=== PATIENT | female | born 1940 | race African-American/Black ===

== ENCOUNTER 2022-09-04 12:55 | Inpatient (IN) | payer MEDICARE, MEDICAID ==
[~2022-09-04] VITALS: Ht 149.9 cm; Wt 41.7 kg
[~2022-09-04 12:55] MED LIST: ALEN70TA79 PO; ASPI-1497 PO; DOCU-138 PO; LISI20TA31 PO; NIFE30TA8 PO; PRAS10TA6 PO; TIOT18CA3 IH; TRIA1CAP35 PO; ZOLP5TAB2 PO
[2022-09-04] MEDS ORDERED: HYDRALAZINE 20MG/ML VIAL IV ONE ×3 (15:00→21:45)
[2022-09-04 15:22] LABS: BASOPHILS % 0.7 % (0.0-2.0); HEMATOCRIT. 34.2 % (36.0-48.0); HEMOGLOBIN. 11.5 g/dL (12.0-16.0); LYMPHOCYTES % 12.6 % (20.0-50.0); MEAN CORPUSCULAR HEMOGLOBIN 29.5 pg (28.0-32.0); MEAN CORPUSCULAR VOLUME 87.5 fL (81.0-99.0); MEAN PLATELET VOLUME 9.8 fl (7.4-10.4); MONOCYTES % 6.5 % (2.0-8.0); NEUTROPHILS % 77.2 % (40.0-76.0); PLATELET 237 x1000/uL (130-400); RED BLOOD CELL COUNT 3.91 mill/uL (4.2-5.4); RED CELL DISTRIBUTION WIDTH 14.8 % (11.6-14.6)
[2022-09-04 15:26] LABS: CHLORIDE 106 mEq/L (98-107)
[2022-09-04 15:34] LABS: ETHANOL BLOOD < 10 mg/dL
[2022-09-04 15:43] LABS: PROTHROMBIN TIME 10.5 sec (9.6-11.0)
[2022-09-04 16:06] LABS: CLARITY URINE CLEAR (CLEAR); COLOR URINE YELLOW (YELLOW); KETONES URINE 1+ (NEGATIVE); LEUKOCYTE ESTERASE URINE TRACE (NEGATIVE); NITRITE URINE NEGATIVE (NEGATIVE); OCCULT BLOOD URINE NEGATIVE (NEGATIVE); PROTEIN URINE NEGATIVE (NEGATIVE); SPECIFIC GRAVITY URINE 1.007 (1.005-1.030); UROBILINOGEN URINE 0.2 E.U./dL (0.2-1.0)
[2022-09-04 16:27] LABS: *AMPHETAMINES SCREEN URINE NEGATIVE (NEGATIVE); *BARBITURATES SCREEN URINE NEGATIVE (NEGATIVE); *BENZODIAZEPINES SCREEN URINE NEGATIVE (NEGATIVE); *COCAINE SCREEN URINE NEGATIVE (NEGATIVE); CANNABINOID URINE SCREEN NEGATIVE (NEGATIVE); METHADONE URINE SCREEN NEGATIVE (NEGATIVE); OPIATES URINE SCREEN PRESUMTIVE POSITIVE (NEGATIVE); PHENCYCLIDINE URINE SCREEN NEGATIVE (NEGATIVE)
[2022-09-04 23:05] VITALS: BP 182/54
[2022-09-05] VITALS: BP 182/54
[2022-09-05] MEDS: CLONIDINE 0.1MG TABLET PO PRN ×2 (03:06→11:52)
[2022-09-05 04:00] VITALS: BP 202/55
[2022-09-05 08:00] VITALS: BP 106/49
[2022-09-05] MEDS: ENOXAPARIN 40MG/0.4ML SYR SUBCUT SCH (08:37)
[2022-09-05] MEDS: LISINOPRIL 20MG TABLET PO SCH ×2 (08:37→18:11)
[2022-09-05] MEDS: ASPIRIN 81MG TABLET PO SCH (08:37)
[2022-09-05] MEDS: DOCUSATE SODIUM 100MG CAPSULE PO SCH (08:38)
[2022-09-05] MEDS ORDERED: ENOXAPARIN 40MG/0.4ML SYR SUBCUT SCH (09:00)
[2022-09-05 12:00] VITALS: BP 213/65
[2022-09-05] MEDS ORDERED: LOSARTAN POTASSIUM 50 MG TABLET PO SCH (13:00)
[2022-09-05] MEDS: CLONIDINE 0.2MG TABLET PO SCH ×2 (14:54→21:37)
[2022-09-05 16:00] VITALS: BP 162/54
[2022-09-05 20:00] VITALS: BP 133/59
[2022-09-05] MEDS ORDERED: HYDRALAZINE HCL 50MG TABLET PO SCH (21:00)
[2022-09-05] MEDS: HYDRALAZINE HCL 100MG TABLET PO SCH (21:37)
[2022-09-06] VITALS: BP 128/60
[2022-09-06 04:00] VITALS: BP 143/58
[2022-09-06 08:00] VITALS: BP 176/51
[2022-09-06] MEDS: DOCUSATE SODIUM 100MG CAPSULE PO SCH (08:57)
[2022-09-06] MEDS: LISINOPRIL 20MG TABLET PO SCH ×2 (08:57→18:29)
[2022-09-06] MEDS: ASPIRIN 81MG TABLET PO SCH (08:57)
[2022-09-06] MEDS: ENOXAPARIN 40MG/0.4ML SYR SUBCUT SCH (08:57)
[2022-09-06] MEDS: CLONIDINE 0.2MG TABLET PO SCH ×2 (08:58→20:46)
[2022-09-06] MEDS: HYDRALAZINE HCL 100MG TABLET PO SCH ×2 (08:58→20:46)
[2022-09-06 12:00] VITALS: BP 101/47
[2022-09-06] MEDS ORDERED: ACETAMINOPHEN 325MG TABLET PO PRN (12:00)
[2022-09-06 16:00] VITALS: BP 143/58
[2022-09-06] MEDS ORDERED: NALOXONE HCL 0.4MG/ML VIAL IV PRN (18:45)
[2022-09-06] MEDS ORDERED: HYDROCODONE/ACETAMINOPHEN 5/325MG TABLET PO PRN (18:45)
[2022-09-06 20:00] VITALS: BP 129/48
[2022-09-07] VITALS: BP 128/45
[2022-09-07 04:00] VITALS: BP 138/50
[2022-09-07 08:00] VITALS: BP 168/80
[2022-09-07] MEDS: ASPIRIN 81MG TABLET PO SCH (08:23)
[2022-09-07] MEDS: DOCUSATE SODIUM 100MG CAPSULE PO SCH ×2 (08:27→08:34)
[2022-09-07] MEDS: CLONIDINE 0.2MG TABLET PO SCH (08:27)
[2022-09-07] MEDS: LISINOPRIL 20MG TABLET PO SCH (08:27)
[2022-09-07] MEDS: HYDRALAZINE HCL 100MG TABLET PO SCH (08:27)
[2022-09-07] MEDS: ENOXAPARIN 40MG/0.4ML SYR SUBCUT SCH (08:28)
[2022-09-07 12:00] VITALS: BP 135/55
[2022-09-07] MEDS ORDERED: LISI20TA31 PO (12:08)
[2022-09-07] MEDS ORDERED: HYDR100T26 PO (12:08)
[2022-09-07] MEDS ORDERED: CLON0.2T PO (12:08)
[2022-09-07 13:27] VITALS: BP 135/55
[2022-09-07 16:00] VITALS: BP 131/57
== END 2022-09-07 16:00 | disposition home or self-care (01) | DRG 304 ==
LOC: ER 12:55 → 8WST 16:12 → EDBEDREQ 16:18 → EDBEDREQTM 16:18 → ER 23:41
PROVIDERS: ADMIT Family Medicine Adult Medicine; ATTEND Family Medicine Adult Medicine
DX: I16.0 Hypertensive urgency (principal); G93.41 Metabolic encephalopathy; I25.10 Atherosclerotic heart disease of native coronary artery without angina pectoris; I10 Essential (primary) hypertension; Z20.822 Contact with and (suspected) exposure to COVID-19; Z88.8 Allergy status to other drugs, medicaments and biological substances; Z79.899 Other long term (current) drug therapy; Z79.82 Long term (current) use of aspirin
CPT/HCPCS: 36415; 80053; 80305; 80320; 81003; 82962; 84484; 85025; 87426; 93005; 93970; 99285; J0360; J1650; G0480